=== PATIENT | female | born 1970 | race American Indian/Alaskan Native ===

== ENCOUNTER → 2017-12-05 | Outpatient (CLI) | payer OTHER ==
[~2017-12-05] MED LIST: ALBU90OI INH; AMOX500 PO; ASCO500 PO; ASPI81CH PO; BUDE6HFA INH; Citalopram HBr20 MG PO; Cleocin HCl300 MG PO; Crutch1 EACH MISC; FURO20 PO; HYDACE5 PO; IBUP800 PO; IRON PO; LOSA25 PO; MULVITMINE; Omeprazole20 M1 PO; POTA10T PO; Revatio20 MG PO; SPIR25 PO; WARF5 PO
[2017-12-05 18:04] LABS: Percent Saturation 9.3 % (15.0-50.0)
[2017-12-06 14:09] LABS: Performing Lab VAMCL; Test Name PT
== END | disposition home or self-care (01) ==
LOC: LAB SHORT 16:32 → LAB 16:32
PROVIDERS: Internal Medicine Hematology & Oncology
DX: Z79.01 Long term (current) use of anticoagulants (principal); Z51.81 Encounter for therapeutic drug level monitoring; D50.9 Iron deficiency anemia, unspecified
CPT/HCPCS: 83540; 83550; 85610

== ENCOUNTER 2018-10-18 15:23 | Observation (INO) | payer SELFPAY ==
[~2018-10-18] VITALS: Ht 167.6 cm; Wt 83.5 kg
[2018-10-18 16:07] LABS: BASOPHILS ABSOLUTE AUTO 0.02 K/mm3 (0.00-0.23); BASOPHILS PERCENT AUTO 0 % (0-2); EOSINOPHILS ABSOLUTE AUTO 0.12 K/mm3 (0.00-0.68); EOSINOPHILS PERCENT AUTO 2 % (0-6); Hematocrit 40.6 % (33.0-51.0); Hemoglobin 12.7 g/dL (11.5-16.0); IMMATURE GRAN ABSOLUTE AUTO 0.02 K/mm3 (0.00-0.10); IMMATURE GRAN PERCENT AUTO 0 % (0-1); LYMPHOCYTES ABSOLUTE AUTO 2.14 K/mm3 (0.84-5.20); LYMPHOCYTES PERCENT AUTO 28 % (21-46); MONOCYTES PERCENT AUTO 9 % (4-13); Mean Corpuscular HGB 26.8 pg (26.0-34.0); Mean Corpuscular HGB Conc 31.3 g/dL (31.5-36.5); Mean Corpuscular Volume 86 fL (80-100); Mean Platelet Volume 8.8 fL (9.1-12.4); NEUTROPHILS ABSOLUTE AUTO 4.78 K/mm3 (1.96-9.15); NEUTROPHILS PERCENT AUTO 61 % (41-73); Platelet Count 407 K/mm3 (150-400); RDW Coefficient Variation 13.7 % (11.7-14.2); RDW Standard Deviation 42.8 fL (35.1-46.3); Red Blood Cell Count 4.73 M/mm3 (3.80-5.20); White Blood Cell Count 7.78 K/mm3 (4.00-11.30)
[2018-10-18 16:32] LABS: Alanine Aminotransfer (ALT/SGP 45 U/L (12-78); Albumin, Blood 3.4 g/dL (3.4-5.0); Alk Phos 95 U/L (50-136); Anion Gap 8 mmol/L (6-16); Aspartate Aminotrans (AST/SGOT 34 U/L (12-37); Bilirubin, Total 0.4 mg/dL (0.1-1.0); Blood Urea Nitrogen 13 mg/dL (8-24); Bun/Creatinine Ratio 16.1 (12.0-20.0); CO2, Blood 23 mmol/L (21-32); Chloride, Blood 111 mmol/L (98-108); Creatinine, Blood 0.81 mg/dL (0.40-1.00); Globulin, Blood 3.3 g/dL (2.2-4.0); Glomerular Filtration Rate >60 (60-); Glucose, Blood 94 mg/dL (70-99); Potassium, Blood 3.8 mmol/L (3.5-5.5); Sodium, Blood 142 mmol/L (136-145); Total Protein, Blood 6.7 g/dL (6.4-8.2); Troponin I 0.053 ng/mL (0.000-0.040)
[2018-10-18 19:05] LABS: International Normalized Ratio 1.65; Prothrombin Time Results 16.7 Sec (9.7-11.5)
--- NOTE | 2018-10-18 21:05 | NUR ---
PATIENT IS A NEW ADMIT FROM THE ED ARRIVED VIA W/C. INDEPENDENT TRANSFER ON RA AND AXO X4. DENIES CHEST PAIN, SOB, AND N/V. ORIENTED TO ROOM AND CALL LIGHT SYSTEM. PLAN EXAMINER REPORTS NSR 78. REGULAR DIET FOOD BROUGHT TO PATIENT. CALL LIGHT IN REACH.
--- NOTE | 2018-10-18 23:40 | NUR ---
PATIENT OUT OF ROOM WITH FOR A WALK AND RETURNED.
--- NOTE | 2018-10-19 04:01 | NUR ---
SHIFT SUMMARY PATIENT HAD NO ACUTE CHANGES OBSERVED THIS SHIFT. AXO X4 AND INDEPENDENT IN THE ROOM. DENIES CHEST PAIN, SOB, AND N/V. PIV REMAINS INTACT. DRY ROOM OPERATOR REPORTS NSR 78. PRESENT AFTER ADMIT AND WALKED WITH PATIENT OUTSIDE AND BACK. TROPONINS DECREASED FROM 0.053 TO 0.046 WITH ONE PENDING. PATIENT REPORTED ANXIOUS ON ADMIT AND SBP ELEVATED TO 181 AND BACK DOWN TO 158. PATIENT REPORTS NOT TAKING HER MEDICATION SINCE JUN 2018 FOR FINANCIAL REASONS. WILL BE BACK IN AFTERNOON. CALL LIGHT IN REACH. BED IN LOWEST POSITION. WILL CONTINUE TO MONITOR UNTIL DAY SHIFT NURSE ASSUMES CARE.
[2018-10-19 04:54] LABS: International Normalized Ratio 1.58; Prothrombin Time Results 16.1 Sec (9.7-11.5)
[2018-10-19 05:00] LABS: Anion Gap 8 mmol/L (6-16); Blood Urea Nitrogen 17 mg/dL (8-24); CO2, Blood 23 mmol/L (21-32); Calcium, Blood 8.5 mg/dL (8.5-10.1); Chloride, Blood 109 mmol/L (98-108); Glomerular Filtration Rate >60 (60-); Glucose, Blood 89 mg/dL (70-99); Potassium, Blood 4.3 mmol/L (3.5-5.5); Sodium, Blood 140 mmol/L (136-145)
--- NOTE | 2018-10-19 11:49 | NUR ---
Echocardiogram completed.
--- NOTE | 2018-10-19 14:45 | NUR ---
DISCHARGE INSTRUCTIONS COMPLETED AND DISCUSSED WITH PT EXPRESSING UNERSTANDING. [employer]AY[facility] FILL SCRIPTS GIVEN TO PT TO HAVE FILLED. GAVE PT INFORMATIONS ON [employer] FOR FUTURE FILLS. CASE MANAGEMENT GAVE PT INFORMATION ABOUT APPLYING FOR INSURANCES WELL. TO [facility] VIA W/C WITH FRIEND.
== END 2018-10-19 14:16 | disposition home or self-care (01) ==
LOC: ER 15:23 → MEDS 15:24 → ENPENDDIS 10-19 11:32 → MEDS 10-19 14:16
PROVIDERS: Physician Assistant; ADMIT Hospitalist
DX: R06.02 Shortness of breath (principal); R77.8 Other specified abnormalities of plasma proteins; I27.20 Pulmonary hypertension, unspecified; I50.32 Chronic diastolic (congestive) heart failure; F17.210 Nicotine dependence, cigarettes, uncomplicated; K21.9 Gastro-esophageal reflux disease without esophagitis; Z88.5 Allergy status to narcotic agent; Z79.01 Long term (current) use of anticoagulants; Z79.899 Other long term (current) drug therapy
CPT/HCPCS: 36415; 71046; 80048; 80053; 84484; 85025; 85610; 93005; 93010; 93306; 94640; 99285-25; J1650

== ENCOUNTER → 2019-01-03 | Outpatient (CLI) | payer OTHER ==
[2019-01-03 17:59] LABS: BASOPHILS ABSOLUTE AUTO 0.02 K/mm3 (0.00-0.23); BASOPHILS PERCENT AUTO 0 % (0-2); EOSINOPHILS ABSOLUTE AUTO 0.12 K/mm3 (0.00-0.68); EOSINOPHILS PERCENT AUTO 2 % (0-6); Hematocrit 35.3 % (33.0-51.0); Hemoglobin 11.4 g/dL (11.5-16.0); IMMATURE GRAN ABSOLUTE AUTO 0.04 K/mm3 (0.00-0.10); IMMATURE GRAN PERCENT AUTO 1 % (0-1); LYMPHOCYTES ABSOLUTE AUTO 2.07 K/mm3 (0.84-5.20); LYMPHOCYTES PERCENT AUTO 27 % (21-46); MONOCYTES ABSOLUTE AUTO 0.67 K/mm3 (0.16-1.47); MONOCYTES PERCENT AUTO 9 % (4-13); Mean Corpuscular HGB 26.1 pg (26.0-34.0); Mean Corpuscular HGB Conc 32.3 g/dL (31.5-36.5); Mean Corpuscular Volume 81 fL (80-100); Mean Platelet Volume 8.3 fL (9.1-12.4); NEUTROPHILS ABSOLUTE AUTO 4.87 K/mm3 (1.96-9.15); NEUTROPHILS PERCENT AUTO 63 % (41-73); Platelet Count 440 K/mm3 (150-400); RDW Coefficient Variation 17.1 % (11.7-14.2); RDW Standard Deviation 50.4 fL (35.1-46.3); Red Blood Cell Count 4.36 M/mm3 (3.80-5.20); White Blood Cell Count 7.79 K/mm3 (4.00-11.30)
[2019-01-03 18:14] LABS: Alanine Aminotransfer (ALT/SGP 31 U/L (12-78); Albumin, Blood 3.3 g/dL (3.4-5.0); Albumin/Globulin Ratio 0.9 (0.8-1.8); Alk Phos 91 U/L (40-126); Anion Gap 9 mmol/L (6-16); Aspartate Aminotrans (AST/SGOT 16 U/L (12-37); Bilirubin, Total 0.3 mg/dL (0.1-1.0); Blood Urea Nitrogen 17 mg/dL (8-24); Bun/Creatinine Ratio 17.9 (12.0-20.0); CO2, Blood 24 mmol/L (21-32); Calcium, Blood 8.4 mg/dL (8.5-10.1); Chloride, Blood 104 mmol/L (98-108); Creatinine, Blood 0.95 mg/dL (0.40-1.00); Globulin, Blood 3.5 g/dL (2.2-4.0); Glomerular Filtration Rate >60 (60-); Glucose, Blood 77 mg/dL (70-99); Potassium, Blood 3.8 mmol/L (3.5-5.5); Sodium, Blood 137 mmol/L (136-145); Total Protein, Blood 6.8 g/dL (6.4-8.2)
[2019-01-03 18:15] LABS: Troponin I <0.017 ng/mL (0.000-0.040)
== END | disposition home or self-care (01) ==
LOC: LAB SHORT 17:54 → LAB EV 17:54
PROVIDERS: Physician Assistant
DX: R06.02 Shortness of breath (principal)
CPT/HCPCS: 80053; 83880; 84484; 85025

== ENCOUNTER 2019-03-07 07:57 | Day surgery (SDC) | payer OTHER ==
[~2019-03-07] VITALS: Ht 162.6 cm; Wt 85.0 kg
--- NOTE | 2019-03-07 08:32 | NUR ---
Ambulatory in Day Surgery Patient states colon prep results clear. History, Chart, Medications and Allergies reviewed before start of procedure. Lungs clear T/O to Auscultation. Patient confirms NPO status and agrees with scheduled surgery. Pre-Op teaching done. Pt verbalizes understanding. Patient States Post-Procedure ride home has been arranged.
--- NOTE | 2019-03-07 08:55 | NUR ---
03/07/19 0[address] See Anesthesia record. Bite Block PlacedPatient to ENDO 1History, Chart, Medications and Allergies reviewed before start of procedure. MONITOR INTACT WITH CONTINUOUS PULSE OXIMETRY AND INTERMITTENT BP.O2 VIA N/C INTACT THROUGHOUT SEDATION/PROCEDURE.
--- NOTE | 2019-03-07 10:36 | NUR ---
Patient up to Ambulate independently. Gait steady. Discharge instructions reviewed with patient. Patient verbalizes understanding. Copy given to patient to take home. Discharged via wheelchair to private car for ride home. Patient States Post-Procedure ride home has been arranged.
== END 2019-03-07 23:10 | disposition home or self-care (01) ==
LOC: ORSCMMR 07:57 → ORD 08:45 → ORSCMMR 08:45 → ORD 10:30 → ORSCMMR 23:10
PROVIDERS: Internal Medicine Gastroenterology
PROC: 0DB68ZX Excision of Stomach, Via Natural or Artificial Opening Endoscopic, Diagnostic (ICD-10-PCS; principal; 2019-03-07 08:45)
PROC: 3E0H8GC Introduction of Other Therapeutic Substance into Lower GI, Via Natural or Artificial Opening Endoscopic (ICD-10-PCS; principal; 2019-03-07 08:45)
PROC: 0DBN8ZX Excision of Sigmoid Colon, Via Natural or Artificial Opening Endoscopic, Diagnostic (ICD-10-PCS; principal; 2019-03-07 08:45)
DX: C18.7 Malignant neoplasm of sigmoid colon (principal); K63.5 Polyp of colon; K22.11 Ulcer of esophagus with bleeding; K21.9 Gastro-esophageal reflux disease without esophagitis; I10 Essential (primary) hypertension; I27.20 Pulmonary hypertension, unspecified; I25.10 Atherosclerotic heart disease of native coronary artery without angina pectoris; J44.9 Chronic obstructive pulmonary disease, unspecified; G47.33 Obstructive sleep apnea (adult) (pediatric); Z79.899 Other long term (current) drug therapy; Z79.82 Long term (current) use of aspirin
CPT/HCPCS: 88305; 88342; J2704; J7120

== ENCOUNTER 2019-04-26 13:52 | Emergency (ER) | payer OTHER ==
[~2019-04-26] VITALS: Ht 162.6 cm; Wt 87.1 kg
[~2019-04-26 13:52] MED LIST changes: +ALPR.5
[2019-04-26 14:28] LABS: Source, Urine Clean Catch
[2019-04-26 14:36] LABS: BASOPHILS ABSOLUTE AUTO 0.04 K/mm3 (0.00-0.23); BASOPHILS PERCENT AUTO 1 % (0-2); EOSINOPHILS ABSOLUTE AUTO 0.14 K/mm3 (0.00-0.68); EOSINOPHILS PERCENT AUTO 2 % (0-6); Hematocrit 29.9 % (33.0-51.0); Hemoglobin 8.6 g/dL (11.5-16.0); IMMATURE GRAN ABSOLUTE AUTO 0.02 K/mm3 (0.00-0.10); IMMATURE GRAN PERCENT AUTO 0 % (0-1); LYMPHOCYTES ABSOLUTE AUTO 1.69 K/mm3 (0.84-5.20); LYMPHOCYTES PERCENT AUTO 22 % (21-46); MONOCYTES ABSOLUTE AUTO 0.53 K/mm3 (0.16-1.47); MONOCYTES PERCENT AUTO 7 % (4-13); Mean Corpuscular HGB 20.9 pg (26.0-34.0); Mean Corpuscular HGB Conc 28.8 g/dL (31.5-36.5); Mean Corpuscular Volume 73 fL (80-100); Mean Platelet Volume 8.7 fL (9.1-12.4); NEUTROPHILS ABSOLUTE AUTO 5.28 K/mm3 (1.96-9.15); NEUTROPHILS PERCENT AUTO 69 % (41-73); Platelet Count 567 K/mm3 (150-400); RDW Coefficient Variation 16.4 % (11.7-14.2); RDW Standard Deviation 42.6 fL (35.1-46.3); Red Blood Cell Count 4.11 M/mm3 (3.80-5.20)
[2019-04-26 14:40] LABS: Bilirubin, Urine Neg (Neg); Blood, Urine 5+ (Neg); Glucose Qualitative, Urine Neg (Neg); Ketones, Urine Neg (Neg); Leukocyte Esterase, Urine Neg (Neg); Nitrite, Urine Neg (Neg); Protein, Urine Neg (Neg); Urobilinogen, Urine NORM (Normal)
[2019-04-26 14:57] LABS: Alanine Aminotransfer (ALT/SGP 12 U/L (12-78); Albumin/Globulin Ratio 0.8 (0.8-1.8); Alk Phos 98 U/L (50-136); Anion Gap 6 mmol/L (6-16); Aspartate Aminotrans (AST/SGOT 9 U/L (12-37); Bilirubin, Total 0.2 mg/dL (0.1-1.0); Blood Urea Nitrogen 11 mg/dL (8-24); Bun/Creatinine Ratio 13.1 (12.0-20.0); CO2, Blood 24 mmol/L (21-32); Calcium, Blood 8.3 mg/dL (8.5-10.1); Chloride, Blood 109 mmol/L (98-108); Creatinine, Blood 0.84 mg/dL (0.40-1.00); Glomerular Filtration Rate >60 (60-); Glucose, Blood 149 mg/dL (70-99); Sodium, Blood 139 mmol/L (136-145)
[2019-04-26 15:03] LABS: Appearance, Urine Hazy (Clear); Color, Urine Yellow (P-Yellow)
[2019-04-26 15:05] LABS: Bacteria Rare /hpf; Red Blood Cells, Urine 0-2 /hpf (0-2); Squamous Epithelial Cells Rare /hpf (Few); White Blood Cells, Urine 0-2 /hpf (0-5)
[2019-04-26] MEDS ORDERED: KAPSPARGO SPRIN25 MG PO (17:42)
[2019-04-26] MEDS ORDERED: Roxicodone5 MG PO (18:32)
== END 2019-04-26 18:39 | disposition home or self-care (01) ==
LOC: ER 13:52
PROVIDERS: Physician Assistant
DX: R10.30 Lower abdominal pain, unspecified (principal); C18.9 Malignant neoplasm of colon, unspecified; Z86.711 Personal history of pulmonary embolism; Z87.891 Personal history of nicotine dependence; Z88.5 Allergy status to narcotic agent; Z79.899 Other long term (current) drug therapy; Z79.82 Long term (current) use of aspirin; Z79.01 Long term (current) use of anticoagulants
CPT/HCPCS: 74177; 80053; 81001; 83690; 85025; 96361; 96374-59; 96375; 99284-25; J1170; J1885; J2405; J7030; Q9967

== ENCOUNTER 2019-05-10 00:42 | Emergency (ER) | payer OTHER ==
[~2019-05-10] VITALS: Ht 162.6 cm; Wt 85.7 kg
[~2019-05-10 00:42] MED LIST changes: -Augmentin 875-1 EACH PO; -Enulose10 GM/15 M PO
[2019-05-10 01:45] LABS: BASOPHILS ABSOLUTE AUTO 0.01 K/mm3 (0.00-0.23); BASOPHILS PERCENT AUTO 0 % (0-2); EOSINOPHILS PERCENT AUTO 2 % (0-6); Hematocrit 28.6 % (33.0-51.0); Hemoglobin 8.2 g/dL (11.5-16.0); IMMATURE GRAN ABSOLUTE AUTO 0.03 K/mm3 (0.00-0.10); IMMATURE GRAN PERCENT AUTO 1 % (0-1); LYMPHOCYTES ABSOLUTE AUTO 0.76 K/mm3 (0.84-5.20); LYMPHOCYTES PERCENT AUTO 15 % (21-46); MONOCYTES ABSOLUTE AUTO 0.36 K/mm3 (0.16-1.47); MONOCYTES PERCENT AUTO 7 % (4-13); Mean Corpuscular HGB 20.9 pg (26.0-34.0); Mean Corpuscular HGB Conc 28.7 g/dL (31.5-36.5); Mean Corpuscular Volume 73 fL (80-100); Mean Platelet Volume 8.8 fL (9.1-12.4); NEUTROPHILS ABSOLUTE AUTO 3.72 K/mm3 (1.96-9.15); NEUTROPHILS PERCENT AUTO 75 % (41-73); Platelet Count 431 K/mm3 (150-400); RDW Coefficient Variation 19.7 % (11.7-14.2); RDW Standard Deviation 44.9 fL (35.1-46.3); Red Blood Cell Count 3.93 M/mm3 (3.80-5.20); White Blood Cell Count 4.98 K/mm3 (4.00-11.30)
[2019-05-10 02:04] LABS: Alanine Aminotransfer (ALT/SGP 14 U/L (12-78); Albumin, Blood 3.1 g/dL (3.4-5.0); Albumin/Globulin Ratio 0.8 (0.8-1.8); Alk Phos 101 U/L (50-136); Anion Gap 5 mmol/L (6-16); Aspartate Aminotrans (AST/SGOT 19 U/L (12-37); Bilirubin, Total 0.2 mg/dL (0.1-1.0); Blood Urea Nitrogen 17 mg/dL (8-24); Bun/Creatinine Ratio 20.7 (12.0-20.0); CO2, Blood 25 mmol/L (21-32); Calcium, Blood 8.3 mg/dL (8.5-10.1); Chloride, Blood 109 mmol/L (98-108); Creatinine, Blood 0.82 mg/dL (0.40-1.00); Globulin, Blood 3.9 g/dL (2.2-4.0); Glomerular Filtration Rate >60 (60-); Glucose, Blood 97 mg/dL (70-99); Potassium, Blood 4.7 mmol/L (3.5-5.5); Sodium, Blood 139 mmol/L (136-145)
[2019-05-10] MEDS ORDERED: Augmentin 875-1 EACH PO (04:21)
== END 2019-05-10 05:47 | disposition home or self-care (01) ==
LOC: ER 00:42
PROVIDERS: Emergency Medicine
DX: K57.32 Diverticulitis of large intestine without perforation or abscess without bleeding (principal); K59.00 Constipation, unspecified; Z85.038 Personal history of other malignant neoplasm of large intestine; Z87.891 Personal history of nicotine dependence; Z88.5 Allergy status to narcotic agent; Z79.899 Other long term (current) drug therapy; Z79.82 Long term (current) use of aspirin
CPT/HCPCS: 74176; 80053; 85025; 96374; 96375; 96376; 99284-25; J1170; J2310; J2405; J3010

== ENCOUNTER → 2019-05-10 | Outpatient (CLI) | payer OTHER ==
[~2019-05-10] MED LIST changes: +Augmentin 875-1 EACH PO; +Enulose10 GM/15 M PO; +KAPSPARGO SPRIN25 MG PO; +Roxicodone5 MG PO
[2019-05-17 13:08] LABS: CANNABIDIOL Negative (.); CANNABINOID CONFIRMATION Positive (.); CANNABINOL Negative (.); CARBOXY-THC 421.2 ng/mL (.); HYDROXY-THC 11.8 ng/mL (.); TETRAHYDROCANNABINOL(THC) 2.9 ng/mL (.)
[2019-05-22 16:06] LABS: 6-ACETYLMORPHINE Negative (.); CODEINE Negative (.); DIHYDROCODEINE Negative (.); HYDROCODONE 24.5 ng/mL (.); HYDROMORPHONE Negative (.); MORPHINE Negative (.); OPIATE CONFIRMATION Positive (.)
[2019-05-25 06:07] LABS: OXYCODONE 1.6 ng/mL (.); OXYCODONES CONFIRMATION Positive (.); OXYMORPHONE Negative (.)
== END | disposition home or self-care (01) ==
LOC: LAB 14:38 → LAB SHORT 14:38
PROVIDERS: Internal Medicine Hematology & Oncology
DX: R41.82 Altered mental status, unspecified (principal)

== ENCOUNTER 2019-05-18 13:54 | Day surgery (SDC) | payer OTHER ==
[~2019-05-18 13:54] MED LIST changes: +Augmentin 875-1 EACH PO
== END 2019-05-18 15:18 | disposition home or self-care (01) ==
LOC: ATC 13:54
DX: Z48.00 Encounter for change or removal of nonsurgical wound dressing (principal); C18.7 Malignant neoplasm of sigmoid colon; I10 Essential (primary) hypertension; J44.9 Chronic obstructive pulmonary disease, unspecified; F32.9 Major depressive disorder, single episode, unspecified; F41.9 Anxiety disorder, unspecified; I27.20 Pulmonary hypertension, unspecified; F17.210 Nicotine dependence, cigarettes, uncomplicated; Z85.42 Personal history of malignant neoplasm of other parts of uterus; Z88.5 Allergy status to narcotic agent; Z79.1 Long term (current) use of non-steroidal anti-inflammatories (NSAID); Z79.01 Long term (current) use of anticoagulants; Z79.82 Long term (current) use of aspirin; Z79.51 Long term (current) use of inhaled steroids; Z79.899 Other long term (current) drug therapy
CPT/HCPCS: 99211

== ENCOUNTER 2019-05-21 13:34 | Emergency (ER) | payer OTHER ==
[~2019-05-21] VITALS: Ht 162.6 cm; Wt 87.1 kg
[2019-05-21] MEDS ORDERED: Enulose10 GM/15 M PO (14:45)
== END 2019-05-21 15:02 | disposition home or self-care (01) ==
LOC: ER 13:34
DX: K59.00 Constipation, unspecified (principal); Z79.899 Other long term (current) drug therapy; Z79.82 Long term (current) use of aspirin; I10 Essential (primary) hypertension; Z87.891 Personal history of nicotine dependence; Z85.038 Personal history of other malignant neoplasm of large intestine
CPT/HCPCS: 74018; 99283-25

== ENCOUNTER 2019-09-09 01:02 | Day surgery (SDC) | payer OTHER ==
[~2019-09-09 01:02] MED LIST changes: +Enulose10 GM/15 M PO
== END 2019-09-09 17:03 | disposition home or self-care (01) ==
LOC: ATC 01:02
DX: C18.7 Malignant neoplasm of sigmoid colon (principal); F17.210 Nicotine dependence, cigarettes, uncomplicated; J44.9 Chronic obstructive pulmonary disease, unspecified; F41.9 Anxiety disorder, unspecified; F32.9 Major depressive disorder, single episode, unspecified; I27.20 Pulmonary hypertension, unspecified; M06.9 Rheumatoid arthritis, unspecified
CPT/HCPCS: 36569; C1751

== ENCOUNTER → 2019-09-12 | Outpatient (CLI) | payer OTHER ==
[2019-09-12 14:43] LABS: Alanine Aminotransfer (ALT/SGP 29 U/L (12-78); Albumin, Blood 2.9 g/dL (3.4-5.0); Albumin/Globulin Ratio 0.9 (0.8-1.8); Alk Phos 70 U/L (50-136); Anion Gap 6 mmol/L (6-16); Aspartate Aminotrans (AST/SGOT 17 U/L (12-37); Bilirubin, Total 0.2 mg/dL (0.1-1.0); Blood Urea Nitrogen 15 mg/dL (8-24); Bun/Creatinine Ratio 22.2 (12.0-20.0); CO2, Blood 25 mmol/L (21-32); Calcium, Blood 8.5 mg/dL (8.5-10.1); Chloride, Blood 113 mmol/L (98-108); Creatinine, Blood 0.68 mg/dL (0.40-1.00); Globulin, Blood 3.1 g/dL (2.2-4.0); Glomerular Filtration Rate >60 (60-); Glucose, Blood 105 mg/dL (70-99); Potassium, Blood 3.5 mmol/L (3.5-5.5); Sodium, Blood 144 mmol/L (136-145)
== END | disposition home or self-care (01) ==
LOC: LAB SHORT 10:00 → LAB 10:00
PROVIDERS: Internal Medicine Hematology & Oncology
DX: C18.7 Malignant neoplasm of sigmoid colon (principal)
CPT/HCPCS: 80053; 82378

== ENCOUNTER 2019-09-16 00:46 | Day surgery (SDC) | payer OTHER | END 2019-09-16 22:40 | disposition home or self-care (01) | LOC: ATC 00:46 | DX: C18.7 Malignant neoplasm of sigmoid colon (principal); F17.210 Nicotine dependence, cigarettes, uncomplicated; J44.9 Chronic obstructive pulmonary disease, unspecified ==

== ENCOUNTER 2019-09-26 10:00 | Day surgery (SDC) | payer OTHER | END 2019-09-26 10:30 | disposition home or self-care (01) | LOC: ATC 10:00 | DX: C18.7 Malignant neoplasm of sigmoid colon (principal); F17.210 Nicotine dependence, cigarettes, uncomplicated; J44.9 Chronic obstructive pulmonary disease, unspecified; Z88.5 Allergy status to narcotic agent | CPT/HCPCS: 99211 ==

== ENCOUNTER → 2019-09-28 | Outpatient (CLI) | payer OTHER ==
[2019-09-28 16:29] LABS: Campylobacter Sp Not Detected (NOT DETECT); Plesiomonas Shigelloides Not Detected (NOT DETECT); Salmonella Sp Not Detected (NOT DETECT); Vibrio Sp Not Detected (NOT DETECT); Yersinia Enterocolitica Not Detected (NOT DETECT)
[2019-09-28 16:30] LABS: Adenovirus F 40/41 Not Detected (NOT DETECT); Astrovirus Not Detected (NOT DETECT); Cryptosporidium Not Detected (NOT DETECT); Cyclospora Cayetanensis Not Detected (NOT DETECT); E. Coli O157 Not Detected (NOT DETECT); Entamoeba Histolytica Not Detected (NOT DETECT); Enteroaggregative E. coli-EAEC Not Detected (NOT DETECT); Enteropathogenic E. coli-EPEC Not Detected (NOT DETECT); Enterotoxigenic E. coli-ETEC Not Detected (NOT DETECT); Giardia Lamblia Not Detected (NOT DETECT); Norovirus GI/GII Not Detected (NOT DETECT); Rotavirus A Not Detected (NOT DETECT); Sapovirus Not Detected (NOT DETECT); Shiga Toxin-prod E. coli-STEC Not Detected (NOT DETECT); Shigella/Enteroin E. coli-EIEC Not Detected (NOT DETECT); Vibrio Cholerae Not Detected (NOT DETECT)
== END | disposition home or self-care (01) ==
LOC: LAB 12:42 → LAB SHORT 12:42
PROVIDERS: Internal Medicine Hematology & Oncology
DX: R19.7 Diarrhea, unspecified (principal)
CPT/HCPCS: 0097U

== ENCOUNTER 2019-10-03 02:00 | Day surgery (SDC) | payer OTHER | END 2019-10-03 22:50 | disposition home or self-care (01) | LOC: ATC 02:00 | DX: C18.7 Malignant neoplasm of sigmoid colon (principal); F17.200 Nicotine dependence, unspecified, uncomplicated; J44.9 Chronic obstructive pulmonary disease, unspecified ==

== ENCOUNTER 2019-10-11 00:04 | Day surgery (SDC) | payer OTHER ==
[2019-10-11] MEDS ORDERED: ZOLOFT50 MG PO (10:56)
== END 2019-10-11 10:59 | disposition home or self-care (01) ==
LOC: ATC 00:04
DX: C18.7 Malignant neoplasm of sigmoid colon (principal); F17.210 Nicotine dependence, cigarettes, uncomplicated; J44.9 Chronic obstructive pulmonary disease, unspecified; Z88.5 Allergy status to narcotic agent
CPT/HCPCS: 99211

== ENCOUNTER 2019-10-17 00:15 | Day surgery (SDC) | payer OTHER ==
[~2019-10-17 00:15] MED LIST changes: +ZOLOFT50 MG PO
== END 2019-10-17 14:25 | disposition home or self-care (01) ==
LOC: ATC 00:15
DX: C18.7 Malignant neoplasm of sigmoid colon (principal); I27.20 Pulmonary hypertension, unspecified; J44.9 Chronic obstructive pulmonary disease, unspecified; F17.200 Nicotine dependence, unspecified, uncomplicated; Z88.5 Allergy status to narcotic agent; Z79.899 Other long term (current) drug therapy
CPT/HCPCS: 99211

== ENCOUNTER 2019-10-31 00:07 | Day surgery (SDC) | payer OTHER | END 2019-10-31 14:27 | disposition home or self-care (01) | LOC: ATC 00:07 | DX: C18.7 Malignant neoplasm of sigmoid colon (principal); F17.210 Nicotine dependence, cigarettes, uncomplicated; J44.9 Chronic obstructive pulmonary disease, unspecified; I27.20 Pulmonary hypertension, unspecified; Z79.899 Other long term (current) drug therapy | CPT/HCPCS: 99211 ==

== ENCOUNTER 2019-11-08 00:12 | Day surgery (SDC) | payer OTHER | END 2019-11-08 14:30 | disposition home or self-care (01) | LOC: ATC 00:12 | DX: C18.7 Malignant neoplasm of sigmoid colon (principal); F17.210 Nicotine dependence, cigarettes, uncomplicated; J44.9 Chronic obstructive pulmonary disease, unspecified | CPT/HCPCS: 99211 ==

== ENCOUNTER 2019-11-14 00:10 | Day surgery (SDC) | payer OTHER | END 2019-11-14 14:30 | disposition home or self-care (01) | LOC: ATC 00:10 | DX: C19 Malignant neoplasm of rectosigmoid junction (principal); F17.210 Nicotine dependence, cigarettes, uncomplicated; J44.9 Chronic obstructive pulmonary disease, unspecified; Z88.5 Allergy status to narcotic agent; Z79.899 Other long term (current) drug therapy | CPT/HCPCS: 99211 ==

== ENCOUNTER 2019-11-22 00:06 | Day surgery (SDC) | payer OTHER | END 2019-11-22 14:50 | disposition home or self-care (01) | LOC: ATC 00:06 | DX: C18.7 Malignant neoplasm of sigmoid colon (principal); F17.210 Nicotine dependence, cigarettes, uncomplicated; Z85.048 Personal history of other malignant neoplasm of rectum, rectosigmoid junction, and anus | CPT/HCPCS: 99211 ==

== ENCOUNTER 2019-11-28 00:13 | Day surgery (SDC) | payer OTHER | END 2019-11-28 14:45 | disposition home or self-care (01) | LOC: ATC 00:13 | DX: C18.7 Malignant neoplasm of sigmoid colon (principal); F17.210 Nicotine dependence, cigarettes, uncomplicated; J44.9 Chronic obstructive pulmonary disease, unspecified | CPT/HCPCS: 99211 ==

== ENCOUNTER 2019-12-05 14:42 | Day surgery (SDC) | payer OTHER | END 2019-12-05 15:15 | disposition home or self-care (01) | LOC: ATC 14:42 | DX: C18.7 Malignant neoplasm of sigmoid colon (principal); F17.210 Nicotine dependence, cigarettes, uncomplicated; J44.9 Chronic obstructive pulmonary disease, unspecified; Z79.51 Long term (current) use of inhaled steroids; Z79.899 Other long term (current) drug therapy; Z88.5 Allergy status to narcotic agent | CPT/HCPCS: 99211 ==

== ENCOUNTER 2019-12-12 00:03 | Day surgery (SDC) | payer OTHER ==
--- NOTE | 2019-12-12 16:48 | NUR ---
PT D/C FROM UNIT AT 1504
== END 2019-12-12 15:05 | disposition home or self-care (01) ==
LOC: ATC 00:03
DX: C19 Malignant neoplasm of rectosigmoid junction (principal); F17.210 Nicotine dependence, cigarettes, uncomplicated; J44.9 Chronic obstructive pulmonary disease, unspecified; Z79.51 Long term (current) use of inhaled steroids
CPT/HCPCS: 99211

== ENCOUNTER → 2019-12-12 | Outpatient (CLI) | payer OTHER | END | disposition home or self-care (01) | LOC: LAB 09:50 → LAB SHORT 09:50 | DX: C18.9 Malignant neoplasm of colon, unspecified (principal) | CPT/HCPCS: 82378 ==

== ENCOUNTER 2020-01-01 14:01 | Day surgery (SDC) | payer OTHER ==
[~2020-01-01 14:01] MED LIST changes: -BUDE6HFA INH; +SYMBICORT 160-4.6 GM INH
--- NOTE | 2020-01-01 14:40 | NUR ---
Pt came into the [facility] today for a PICC dressing change. She reports that [place] and her dsg became loose. Discussed care of PICC line and avoiding soaking or getting her PICC insertion site/dsg wet. Site intact without drainage, redness or swelling. Pt refuses biopatch and tegaderm dressings. Pt reports she like to have stat loc with sterile gauze and tegaderm dsg. Cleaned site with chlorprep and allowed to air dry. Applied skin prep. 2x2 sterile gauze and tegaderm dsg applied. Unable to flush line. Spoke diandra Centeno at Dr. Adames's office and received an order for cathflo. Cathflo placed in line and after 2 minutes blood return was noted. Flushed with 40 ml NS and changed end cap. Pt to follow up with Dr. Adames's office tomorrow for her chemo infusion.
== END 2020-01-01 14:40 | disposition home or self-care (01) ==
LOC: ATC 14:01
DX: C19 Malignant neoplasm of rectosigmoid junction (principal); F17.210 Nicotine dependence, cigarettes, uncomplicated; J44.9 Chronic obstructive pulmonary disease, unspecified; Z79.51 Long term (current) use of inhaled steroids; Z88.5 Allergy status to narcotic agent; Z79.899 Other long term (current) drug therapy
CPT/HCPCS: 36593; J2997

== ENCOUNTER 2020-02-08 00:36 | Day surgery (SDC) | payer OTHER ==
--- NOTE | 2020-02-08 12:30 | NUR ---
RE EDUCATION: PT STS SHE WILL BE GOING BOATING THIS WEEKEND. THIS RN INSTRUCTED PT TO STAY OUT OF THE WATER IN ORDER TO KEEP HER PICC CLEAN. PT STS THAT SHE WILL PROBABLY GO IN THE WATER BUT THAT HER HAS MADE A COVER FOR THE PICC THAT WILL KEEP IT DRY. THIS RN STRESSED THE IMPORTANCE OF KEEPING THE PICC OUT OF [place] THERE IS BACTERIA THAT COULD TRAVEL TO HER HEART. PT VERBALIZED UNDERSTANDING. PT WAS WEARING A LACE, SEE-THROUGH, MASK RATHER THAN AN APPROVED MASK WHILE IN OUR CLINIC.
== END 2020-02-08 10:49 | disposition home or self-care (01) ==
LOC: ATC 00:36
DX: C18.7 Malignant neoplasm of sigmoid colon (principal); F17.210 Nicotine dependence, cigarettes, uncomplicated; J44.9 Chronic obstructive pulmonary disease, unspecified; Z88.5 Allergy status to narcotic agent; Z79.899 Other long term (current) drug therapy
CPT/HCPCS: 99212

== ENCOUNTER 2020-02-22 00:43 | Day surgery (SDC) | payer OTHER | END 2020-02-22 12:25 | disposition home or self-care (01) | LOC: ATC 00:43 | DX: C19 Malignant neoplasm of rectosigmoid junction (principal); F17.210 Nicotine dependence, cigarettes, uncomplicated; J44.9 Chronic obstructive pulmonary disease, unspecified; Z88.5 Allergy status to narcotic agent | CPT/HCPCS: 99211 ==

== ENCOUNTER 2020-02-29 00:06 | Day surgery (SDC) | payer OTHER ==
--- NOTE | 2020-02-29 12:35 | NUR ---
1150: PT CAME IN FOR PICC DRESSING CHANGE AND PICC OUT 10CM FROM INSERTION SITE. CALLED FARHAD AT [facility] AND RECIEVED T/O FOR PICC INSERTION OR PICC EXCHANGE. [facility] AND WILL COME BACK AROOUMD 13;15 TODAY FOR PICC INSERTION
== END 2020-02-29 14:45 | disposition home or self-care (01) ==
LOC: ATC 00:06
DX: C19 Malignant neoplasm of rectosigmoid junction (principal); F17.210 Nicotine dependence, cigarettes, uncomplicated; J44.9 Chronic obstructive pulmonary disease, unspecified; Z90.49 Acquired absence of other specified parts of digestive tract; Z79.899 Other long term (current) drug therapy; Z88.5 Allergy status to narcotic agent
CPT/HCPCS: 36569; 71045; C1751

== ENCOUNTER → 2020-03-14 | Outpatient (CLI) | payer OTHER ==
[2020-03-14 20:41] LABS: Alanine Aminotransfer (ALT/SGP 17 U/L (12-78); Albumin, Blood 3.7 g/dL (3.4-5.0); Albumin/Globulin Ratio 1.1 (0.8-1.8); Alk Phos 92 U/L (50-136); Anion Gap 7 mmol/L (6-16); Aspartate Aminotrans (AST/SGOT 16 U/L (12-37); Bilirubin, Total 0.4 mg/dL (0.1-1.0); Blood Urea Nitrogen 18 mg/dL (8-24); CO2, Blood 25 mmol/L (21-32); Chloride, Blood 110 mmol/L (98-108); Creatinine, Blood 0.75 mg/dL (0.40-1.00); Globulin, Blood 3.3 g/dL (2.2-4.0); Glomerular Filtration Rate >60 (60-); Glucose, Blood 81 mg/dL (70-99); Phosphorus, Blood 3.8 mg/dL (2.5-4.9); Potassium, Blood 4.3 mmol/L (3.5-5.5); Sodium, Blood 142 mmol/L (136-145)
== END | disposition home or self-care (01) ==
LOC: LAB SHORT 19:45 → LAB 19:45
PROVIDERS: Internal Medicine Hematology & Oncology
DX: C18.7 Malignant neoplasm of sigmoid colon (principal)
CPT/HCPCS: 80053; 82378; 84100

== ENCOUNTER → 2020-07-03 | Outpatient (CLI) | payer OTHER ==
[~2020-07-03] MED LIST changes: +AMLO5 PO; +Percocet 10-321 EACH PO
[2020-07-03 11:20] LABS: Alanine Aminotransfer (ALT/SGP 19 U/L (12-78); Albumin, Blood 3.6 g/dL (3.4-5.0); Albumin/Globulin Ratio 1.1 (0.8-1.8); Alk Phos 111 U/L (50-136); Anion Gap 7 mmol/L (6-16); Aspartate Aminotrans (AST/SGOT 19 U/L (12-37); Bilirubin, Total 0.7 mg/dL (0.1-1.0); Blood Urea Nitrogen 18 mg/dL (8-24); Bun/Creatinine Ratio 23.5 (12.0-20.0); CO2, Blood 27 mmol/L (21-32); Calcium, Blood 8.6 mg/dL (8.5-10.1); Chloride, Blood 108 mmol/L (98-108); Creatinine, Blood 0.77 mg/dL (0.40-1.00); Globulin, Blood 3.3 g/dL (2.2-4.0); Glomerular Filtration Rate >60 (60-); Glucose, Blood 118 mg/dL (70-99); Phosphorus, Blood 3.8 mg/dL (2.5-4.9); Potassium, Blood 3.6 mmol/L (3.5-5.5); Sodium, Blood 142 mmol/L (136-145); Total Protein, Blood 6.9 g/dL (6.4-8.2)
== END | disposition home or self-care (01) ==
LOC: LAB 10:21 → LAB SHORT 10:21
PROVIDERS: Internal Medicine Hematology & Oncology
DX: C18.7 Malignant neoplasm of sigmoid colon (principal); C77.2 Secondary and unspecified malignant neoplasm of intra-abdominal lymph nodes
CPT/HCPCS: 80053; 82378; 84100

== ENCOUNTER 2020-07-16 11:46 | Day surgery (SDC) | payer OTHER ==
[~2020-07-16] VITALS: Ht 165.1 cm; Wt 66.6 kg
[~2020-07-16 11:46] MED LIST changes: -AMLO5 PO; -Percocet 10-321 EACH PO
[2020-07-16] MEDS ORDERED: AMLO5 PO (12:14)
[2020-07-16] MEDS ORDERED: Percocet 10-321 EACH PO (12:14)
== END 2020-07-16 15:05 | disposition home or self-care (01) ==
LOC: ORSCSDS 11:46
PROVIDERS: Surgery
PROC: 05HM33Z Insertion of Infusion Device into Right Internal Jugular Vein, Percutaneous Approach (ICD-10-PCS; principal; 2020-07-16 12:15)
PROC: B543ZZA Ultrasonography of Right Jugular Veins, Guidance (ICD-10-PCS; principal; 2020-07-16 12:15)
DX: C18.9 Malignant neoplasm of colon, unspecified (principal); I10 Essential (primary) hypertension; F17.210 Nicotine dependence, cigarettes, uncomplicated; K21.9 Gastro-esophageal reflux disease without esophagitis; Z79.899 Other long term (current) drug therapy
CPT/HCPCS: 77001; A9270; C1788; J0330; J0690; J1100; J1642; J2250; J2405; J2704; J3010; J7120